=== PATIENT | female | born 1990 | race Caucasian/White ===

== ENCOUNTER 2016-11-27 18:14 | Emergency (ER) | payer SELFPAY ==
[~2016-11-27] VITALS: Ht 154.9 cm; Wt 59.0 kg
[~2016-11-27 18:14] MED LIST: ACHD5005 PO; ACHYD1T PO; ALBU8.5H4 IH; ALPR1T PO; ALPR2TAB2; CPR500T PO; CYCL10TA9 PO; DOXY-182 PO; HYDR-91 PO; HYDR1TAB PO; HYOS0.1216 PO; IBP800T PO; MTHL5T PO; NAPR-243 PO; NITR-65 PO; NITR100C3 PO; ONDA8TAB9 PO; ONDAN4ODT PO; OXYC-309 PO; PHEN200T27 PO; PHEN37.555 PO; PRD50T PO; PREN1TAB39 PO; TRM50T PO; bcp PO
--- NOTE | 2016-11-27 18:39 | ED Integumentary General ---
General Chief Complaint: Skin/Wound Problems Stated Complaint: R ARM RASH Nursing Triage Note: c/o wound on R wrist with red streaks going up to arm pit. reports R hand swelling Source: patient Exam Limitations: no limitations History of Present Illness Time seen by provider: 18:38 Initial Comments To ER with itching and red streaks on the right arm. She first noticed this yesterday. She denies fevers or chills. She had a similar episode about 3 weeks ago and was given a shot of Rocephin and a course of amoxicillin which did improve her symptoms. Timing/Duration: just prior to arrival Severity: moderate Location: extremities Allergies and Home Medications Allergies Coded Allergies: NKANo Known Allergies (Unverified Allergy, Mild, 01/17/09) No Known Drug Allergies (Verified , 12/20/07) Home Medications Amoxicillin/Potassium Clav 1 Each Tablet #14 1 EACH PO BID Prescribed by: YASIR JOHNSTON on 11/27/161855 Cyclobenzaprine Hcl 10 Mg Tablet #10 1 EACH PO Q8HR PRN Prescribed by: PARKER SORTO on 05/11/132029 Tramadol Hcl 50 Mg Tab #10 50 MG PO Q4H Prescribed by: PARKER SORTO on 05/11/132029 Constitutional: see HPI EENTM: see HPI Respiratory: no symptoms reported Cardiovascular: no symptoms reported Genitourinary: no symptoms reported Musculoskeletal: no symptoms reported Skin: see HPI Psychiatric/Neurological: No Symptoms Reported Endocrine: No Symptoms Reported Past Aluylgm-Ogrflk-Madkcy Hx Patient Social History Alcohol Use: Denies Use Recreational Drug Use: No Smoking Status: Current Everyday Smoker Type Used: Cigarettes Recent Foreign Travel: No Contact w/Someone Who Travel: No Recent Infectious Disease Expo: No Recent Hopitalizations: No Immunizations Up To Date Tetanus Booster (TDap): More than 5yrs Surgeries HX Surgeries: Yes (hysteroscopy, d&c, uterine bx, LIS) Respiratory Hx Respiratory Disorders: Yes Respiratory Disorders: Asthma Cardiovascular Hx Cardiac Disorders: No Neurological Hx Neurological Disorders: No Reproductive System Hx Reproductive Disorders: No Genitourinary Hx Genitourinary Disorders: Yes Genitourinary Disorders: Kidney Infection, Kidney Stones, UTI-Chronic Gastrointestinal Hx Gastrointestinal Disorders: No Musculoskeletal Hx Musculoskeletal Disorders: No Endocrine Hx Endocrine Disorders: No HEENT HX ENT Disorders: No Loss of Vision: Denies Hearing Impairment: Denies Cancer Hx Cancer: No Psychosocial Hx Psychiatric Problems: No Integumentary HX Skin/Integumentary Disorder: No Blood Transfusions Hx Blood Disorders: No Adverse Reaction to a Blood Tr: No Family Medical History Significant Family History: No Pertinent Family Hx Physical Exam Vital Signs Vital Sign - Last 12Hours 11/27/16 18:32 Temp 98.4 Pulse 125 Resp 18 B/P 153/97 Pulse Ox 97 O2 Delivery Room Air Capillary Refill : Less Than 3 Seconds General Appearance: WD/WN no apparent distress HEENT: PERRL/EOMI normal ENT inspection Neck: non-tender full range of motion Respiratory: no respiratory distress no accessory muscle use Gastrointestinal: normal bowel sounds non tender soft Neurologic/Psychiatric: alert normal mood/affect oriented x 3 Skin: normal color warm/dry Skin Problem Location: upper extremities Skin Problem Character: other (meanThere is a dark red dye in size lesion that appears to be a cluster of vesicles to the ulnar side of the hypothenar eminence. There is significant indurated lymphangitis up the full R and ulnar side of the arm terminating just distal to the axilla) Progress/Results/Core Measures Results/Orders Lab Results Laboratory Tests Test 11/27/16 18:35 Range/Units Anion Gap 11 5-14 MMOL/L BUN/Creatinine Ratio 21 Basophils # (Auto) 0.0 0.0-0.1 10^3/uL Basophils (%) (Auto) 0 0-10 % Blood Urea Nitrogen 15 7-18 MG/DL Calcium Level 9.1 8.5-10.1 MG/DL Carbon Dioxide Level 20 L 21-32 MMOL/L Chloride Level 108 H 98-107 MMOL/L Creatinine 0.72 0.60-1.30 MG/DL Eosinophils # (Auto) 0.2 0.0-0.3 10^3/uL Eosinophils (%) (Auto) 2 0-10 % Estimat Glomerular Filtration Rate > 60 Glucose Level 111 H 70-105 MG/DL Hematocrit 44 35-52 % Hemoglobin 15.5 11.5-16.0 G/DL Lymphocytes # (Auto) 1.9 1.0-4.0 X 10^3 Lymphocytes (%) (Auto) 23 12-44 % Mean Corpuscular Hemoglobin 31 25-34 PG Mean Corpuscular Hemoglobin Concent 35 32-36 G/DL Mean Corpuscular Volume 89 80-99 FL Mean Platelet Volume 9.5 7.4-10.4 FL Monocytes # (Auto) 0.7 0.0-1.0 X 10^3 Monocytes (%) (Auto) 9 0-12 % Neutrophils # (Auto) 5.7 1.8-7.8 X 10^3 Neutrophils (%) (Auto) 67 42-75 % Platelet Count 288 130-400 10^3/uL Potassium Level 3.7 3.6-5.0 MMOL/L Red Blood Count 4.95 4.35-5.85 10^6/uL Red Cell Distribution Width 12.6 10.0-14.5 % Sodium Level 139 135-145 MMOL/L White Blood Count 8.5 4.3-11.0 10^3/uL My Orders Orders-YASIR JOHNSTON APRN Cbc With Automated Diff (11/27/16 18:37) Saline Lock/Iv-Start (11/27/16 18:37) Basic Metabolic Panel (11/27/16 18:37) Diphenhydramine Injection (Benadryl Inje (11/27/16 18:45) Ceftriaxone Injection (Rocephin Injectio (11/27/16 18:45) Ceftriaxone Injection (Rocephin Injectio (11/27/16 18:47) Ns (Ivpb) (Sodium Chloride 0.9% Ivpb Bag (11/27/16 18:48) Medications Given in ED Current Medications Medications Dose Ordered Sig/Sera Route Start Time Stop Time Status Last Admin Dose Admin Ceftriaxone Sodium 1000 mg 1,000 mg STK-MED ONCE .ROUTE 11/27/16 18:47 11/27/16 18:49 DC 11/27/16 18:54 2,000 MG Diphenhydramine HCl 25 mg ONCE ONCE IVP 11/27/16 18:45 11/27/16 18:46 DC 11/27/16 18:44 25 MG Sodium Chloride 50 ml STK-MED ONCE .ROUTE 11/27/16 18:48 11/27/16 18:50 DC 11/27/16 18:54 Vital Signs/I&O Vital Sign - Last 12Hours 11/27/16 18:32 Temp 98.4 Pulse 125 Resp 18 B/P 153/97 Pulse Ox 97 O2 Delivery Room Air Blood Pressure Mean: 115 Departure Impression Impression: Primary Impression: soft tissue infection with lymphangitis Disposition: HOME, SELF-CARE Condition: Stable Departure-Patient Inst. Decision time for Depature: 18:56 Referrals: [facility] [place] (PCP/Family) Primary Care Physician Patient Instructions: Cellulitis (Skin Infection), Adult (DC) Add. Discharge Instructions: 1. Return to ER for any concerns 2. Follow-up with your doctor on Monday as scheduled 3. Antibiotics as directed All discharge instructions reviewed with patient and/or family. Voiced understanding. Scripts Amoxicillin/Potassium Clav (Augmentin 875-125 Tablet)1 Each Tablet1 Each PO BID #14 TAB Prov:YASIR JOHNSTON APRN 11/27/16 YASIR JOHNSTON APRN Nov 27, 2016 18:39
[2016-11-27 18:45] LABS: BASOPHILS % (AUTO) 0 % (0-10); EOSINOPHILS # (AUTO) 0.2 10^3/uL (0.0-0.3); EOSINOPHILS % (AUTO) 2 % (0-10); LYMPHOCYTES # (AUTO) 1.9 X 10^3 (1.0-4.0); LYMPHOCYTES % (AUTO) 23 % (12-44); MEAN CORPUSCULAR HEMOGLOBIN 31 PG (25-34); MEAN CORPUSCULAR HGB CONC 35 G/DL (32-36); MEAN CORPUSCULAR VOLUME 89 FL (80-99); MEAN PLATELET VOLUME 9.5 FL (7.4-10.4); MONOCYTES # (AUTO) 0.7 X 10^3 (0.0-1.0); MONOCYTES % (AUTO) 9 % (0-12); NEUTROPHILS # (AUTO) 5.7 X 10^3 (1.8-7.8); NEUTROPHILS % (AUTO) 67 % (42-75); PLATELET COUNT 288 10^3/uL (130-400); RED BLOOD COUNT 4.95 10^6/uL (4.35-5.85); RED CELL DISTRIBUTION WIDTH 12.6 % (10.0-14.5); WHITE BLOOD COUNT 8.5 10^3/uL (4.3-11.0)
[2016-11-27] MEDS ORDERED: diphenhydrAMINE 50 MG/ML INJ (BENADRYL) IVP ONE (18:45)
[2016-11-27] MEDS ORDERED: cefTRIAXone INJECTION 2,000 MG in NS (IVPB) 50 ML IV ONE (18:45)
[2016-11-27] MEDS ORDERED: cefTRIAXone 1 GM (ROCEPHIN) VIAL ONE (18:47)
[2016-11-27] MEDS ORDERED: NS (IVPB) 50 ML ONE (18:48)
[2016-11-27] MEDS ORDERED: AMOX-358 PO (18:56)
[2016-11-27 19:05] LABS: ANION GAP 11 MMOL/L (5-14); BLOOD UREA NITROGEN 15 MG/DL (7-18); BUN/CREATININE RATIO 21; CALCIUM 9.1 MG/DL (8.5-10.1); CARBON DIOXIDE 20 MMOL/L (21-32); CHLORIDE 108 MMOL/L (98-107); CREATININE SERUM 0.72 MG/DL (0.60-1.30); GFR ESTIMATED > 60; GLUCOSE 111 MG/DL (70-105); POTASSIUM 3.7 MMOL/L (3.6-5.0); SODIUM 139 MMOL/L (135-145)
[2016-11-27 19:25] VITALS: BP 149/97
== END 2016-11-27 19:27 | disposition home or self-care (01) ==
LOC: EDUNIT# 18:14 → ER 18:16
DX: L03.113 Cellulitis of right upper limb (principal); F17.210 Nicotine dependence, cigarettes, uncomplicated
CPT/HCPCS: 36415; 80048; 85025; 96365; 96375